=== PATIENT | female | born 2000 ===

== ENCOUNTER 2022-03-01 13:53 | Outpatient (CLI) | payer OTHER | END 2022-03-01 14:48 | disposition home or self-care (01) | LOC: PRENATAL 13:53 | PROVIDERS: ATTEND Obstetrics & Gynecology Maternal & Fetal Medicine | DX: O35.9XX0 Maternal care for (suspected) fetal abnormality and damage, unspecified, not applicable or unspecified (principal); O35.3XX0 Maternal care for (suspected) damage to fetus from viral disease in mother, not applicable or unspecified; Z3A.20 20 weeks gestation of pregnancy ==

== ENCOUNTER 2023-09-23 09:11 | Outpatient (CLI) | payer OTHER | END 2023-09-23 09:12 | disposition home or self-care (01) | LOC: PRENATAL 09:11 | PROVIDERS: ATTEND Obstetrics & Gynecology Maternal & Fetal Medicine | DX: O26.843 Uterine size-date discrepancy, third trimester (principal); O43.893 Other placental disorders, third trimester; Z3A.28 28 weeks gestation of pregnancy ==

== ENCOUNTER → 2023-11-04 08:55 | Outpatient (CLI) | payer OTHER | END | disposition home or self-care (01) | LOC: PRENATAL 08:55 | PROVIDERS: ATTEND Obstetrics & Gynecology Maternal & Fetal Medicine | DX: O26.843 Uterine size-date discrepancy, third trimester (principal); O43.93 Unspecified placental disorder, third trimester; O36.8130 Decreased fetal movements, third trimester, not applicable or unspecified; Z3A.34 34 weeks gestation of pregnancy ==